=== PATIENT | female | born 1940 | race Caucasian/White ===

== ENCOUNTER 2016-07-13 10:00 | Inpatient (IN) | payer MEDICARE, BC ==
[~2016-07-13] VITALS: Ht 157.5 cm; Wt 45.9 kg
[2016-07-13] VITALS (14 sets, daily range): BP systolic 88–124; BP diastolic 52–84; BMI 21.0
--- NOTE | ~2016-07-13 | HEMODYNAMI ---
PATIENT:DAMI GORE MEDICAL RECORD: [id number] : 44 [facility] [id number] ADMISSION DATE: 07/13/16 Generatedon:07/17/20169:32 Patient name: DAMI GORE Patient #: [id number] SSN: DO B: 1940 Date of study: 07/17/2016 Page: Of Hemodynamic Procedure Report Patient Data Patient Demographics Procedure consent was obtained First Name: DAMI Gender: Female Last Name: SOFÍA : 1940 Middle Initial: J Age: 76 year(s) Patient #: [id number] Race: Additional ID: [id number] Contact details Address: [place] [address] State: [place] City: [place] Zip code: [address] Past Medical History Allergies: No known allergies Admission Admission Data Admission Date: 07/13/2016 Admission Time: 12:55 Admit Source: Other Insurance Payor: Medicare Room #: D.2125 Height (in.): 62 BSA: 1.43 (m2) Height (cm.): 157.48 BMI: 18.55 (kg/m2) Weight (lbs.): 101.41 Weight (kg.): 46 Lab Results Lab Result Date: 07/17/2016 Lab Result Time: 0:00 Biochemistry Name Units Result Min Max BUN mg/dl 11 --(-*--)-- 7 18 Creatinine mg/dl 0.6 --(*---)-- 0.6 1.3 CBC Name Units Result Min Max Hemoglobin g/dl 13.7 --(*---)-- 13.5 17.5 Procedure Procedure Types Cath Procedure Diagnostic Procedure [facility] w/[facility] Procedure Description Procedure Date Procedure Date: 07/17/2016 Procedure Start Time: 9:20 Procedure End Time: 9:31 Procedure Staff Name Function Raf Ruiz MD Performing Physician Manny Hutchinson RT Vacuum Drier Tender Edwin Templeton RN Nurse Johnie Valerio RT Scrub Brennon Crews RT Monitor Ace Nickerson RT Monitor Procedure Data Cath Procedure Fluoroscopy Diagnostic fluoroscopy Total fluoroscopy Time: 1.1 time: 1.1 min min Diagnostic fluoroscopy Total fluoroscopy dose: 145 dose: 145 mGy mGy Contrast Material Contrast Material Type Amount (ml) Isovue 300 49 Entry Location Entry Primary Successful Side Size Upsize Upsize Entry Closure Smith ccessful Closure Location (Fr) 1 (Fr) 2 (Fr) Remarks Device Remarks Radial Right 6 Fr Mechanical artery Short Compression Estimated blood loss: 5 ml Diagnostic catheters Device Type Used For End Catheter Placement Terumo 5Fr [place] 110cm Procedure catheter Procedure Medications Medication Administration Route Dosage Oxygen NC 2 l/min Lidocaine 2% added to field 20 Heparin Flush Bag added to field 2 bags (1000units/500ml NS) Versed I.V. 0.5 mg Fentanyl I.V. 25 mcg Radial Cocktail I.A. 1 syringe (Verapomil 2mg/Nitro 400mcg/Heparin 1500units) Versed I.V. 0.5 mg Fentanyl I.V. 25 mcg Hemodynamics Rest BSA: 1.43 (m2) HGB: 13.7 (g/dl) O2 Consumption: Estimated: 134.16 (ml/min) O2 Co nsumption indexed: Estimated:93.82 (ml/min/m) Heart Rate: 77 (bpm) Snapshots Pre Cath Intra NCS Post Cath Vital Signs Time Heart Resp SPO2 etCO2 KC2rigw NIBP (mmHg) Rhythm Pain Sedation Rate (ipm) (%) (mmHg) (mmHg) Status Level (bpm) 9:11:37 73 15 100 0 0 165/79(116) NSR 0 (11) 10(A) , No pain 9:15:57 73 16 99 0 0 149/78(113) NSR 0 (11) 10(A) , No pain 9:20:19 70 16 98 0 0 143/71(103) NSR 0 (11) 10(A) , No pain 9:24:30 79 17 96 0 0 121/66(80) NSR 0 (11) 9(A) , No pain 9:28:44 69 16 96 0 0 119/59(85) NSR 0 (11) 10(A) , No pain Medications Time Medication Route Dose Verified Delivered Reason Notes E ffectiveness by by 9:16:06 Oxygen NC 2 l/min Raf Pineda used for Sara Templeton RN procedure 9:19:48 Lidocaine 2% added 20ml Raf Carbone for local to vial Sara Ruiz MD anesthetic field 9:19:53 Heparin Flush added 2 bags Raf Carbone used for Bag to Sara Ruiz MD procedure (1000units/500ml field NS) 9:20:27 Versed I.V. 0.5 mg Raf Pineda for sedation Sara Templeton RN 9:20:32 Radial Cocktail I.A. 1 Raf Carbone for (Verapomil syringe Sara Ruiz MD vasodilation 2mg/Nitro 400mcg/Heparin 1500units) 9:20:33 Fentanyl I.V. 25 mcg Raf Pineda for sedation Sara Templeton RN 9:24:02 Versed I.V. 0.5 mg Raf Pineda for sedation Sara Templeton RN 9:24:08 Fentanyl I.V. 25 mcg Raf Pineda for sedation Sara Templeton RN Procedure Log Time Note 8:37:22 ACC Patient presents with Unstable Angina CCS Anginal Class 2--Slight limitation of ordinary activity. 8:37:24 Diagnostic Cath status Urgent 8:37:33 Time tracking: Regular hours 8:37:41 Plan of Care:Hemodynamics will remain stable., Cardiac rhythm will remain stable., Comfort level will be maintained., Respiratory function will remain adequate., Patient/ family verbilizes understanding of procedure., Procedure tolerated without complication., Recovers from procedure without complications.. 8:45:26 Manny Hutchinson RT(R) sent for patient. Start room use. 8:47:47 Lab Result : Creatinine 0.6 mg/dl 8:47:47 Lab Result : BUN 11 mg/dl 8:47:47 Lab Result : Hemoglobin 13.7 g/dl 8:55:59 Patient received from Med II to CCL 2 Alert and oriented. Tansferred to table in Supine position. 8:56:00 Warm blankets applied, and heidi hugger turned on for patient comfort. 8:56:01 Correct patient and procedure confirmed by team. 8:56:03 Signed procedure consent form obtained from patient. 8:56:04 ECG and BP/O2 sat monitors applied to patient. 9:02:43 Admit Source: Other 9:02:52 Insurance Payor : Medicare 9:03:14 Patient Height : 62 inches 9:03:20 Patient Weight : 101.41 lbs 9:10:20 Vital chart was started 9:10:21 Baseline sample Acquired. 9:10:26 Rhythm: sinus rhythm 9:10:29 Full Disclosure recording started 9:10:55 H&P Date Dictated: 07/13/2016 Within 30 days and on chart., ER History on chart.. 9:10:57 Pre-procedure instructions explained to patient. 9:10:58 Pre-op teaching completed and patient verbalized understanding. 9:11:00 Family in patients room. 9:11:04 Patient NPO since Midnight. 9:11:13 Patient allergic to No known allergies 9:11:18 Is the patient allergic to Iodine/contrast media? No. 9:11:21 Is patient on blood thinner?No 9:11:28 Patient diabetic? No. 9:11:43 Patient not . Patient is over age 57. 9:11:47 ----Pre-sedation anethsthesia assessment.---- 9:11:51 Previous problem with sedation/anesthesia? No ? 9:12:13 Snore? No 9:12:15 Sleep apnea? No 9:12:17 Deviated septum? No 9:12:18 Opens mouth fully? Yes 9:12:19 Sticks out tongue? Yes 9:12:26 Airway obstruction? No ? 9:12:50 Dentures? No ? 9:13:14 Pre procedure: right dorsailis pedis pulse 2+ Normal; easily identifiable; not easily obliterated 9:13:18 Modified Sterling's test Ulnar < 7 seconds 9:13:29 Patient pain scale 0/10 resting. 9:13:53 IV patent on arrival in left wrist with 0.9% NaCl at KVO. 9:13:59 Lab results completed and on chart. 9:14:04 Right Radial & Right Groin area was prepped with chlora-prep and draped in sterile fashion 9:14:06 Alarms reviewed by R. N. 9:14:07 Sharps counted by scrub and verified by R.N. 9:14:52 Use device set Radial Dx 9:14:53 Tegaderm 4 x 4 opened to sterile field. 9:14:54 Acist Manifold opened to sterile field. 9:14:55 Acist Hand Control opened to sterile field. 9:14:56 Acist Syringe opened to sterile field. 9:14:56 Cardinal Cath Pack opened to sterile field. 9:14:57 Bag Decanter opened to sterile field. 9:14:57 Terumo 6Fr Slender Glidesheath opened to sterile field. 9:14:58 St Rui 260cm J .035 wire opened to sterile field. 9:16:06 Oxygen 2 l/min NC was given by Edwin Templeton RN; used for procedure; 9:19:43 --------ALL STOP TIME OUT------ 9:19:44 Final Timeout: patient, procedure, and site verified with staff and physician. All members of the team are in agreement. 9:19:46 Right Radial & Right Groin site verified by team. 9:19:48 Lidocaine 2% 20ml vial added to field was given by Raf Ruiz MD; for local anesthetic; 9:19:48 Physical assessment completed. ASA score P 2 - A patient with mild systemic disease as per Raf Ruiz MD. 9:19:51 Sedation plan: IV Moderate Sedation Versed, Fentanyl 9:19:53 Heparin Flush Bag (1000units/500ml NS) 2 bags added to field was given by Raf Ruiz MD; used for procedure; 9::56 Zero performed for pressure channel P1 9:20:01 Zero performed for pressure channel P1 9:20:15 Procedure started. 9:20:19 Local anesthetic to right radial artery with Lidocaine 2% by Raf Ruiz MD.INITIAL ACCESS ONLY 9:20:27 Versed 0.5 mg I.V. was given by Edwin Templeton RN; for sedation; 9:20:27 A 6 Fr Short sheath was inserted into the Right Radial artery 9:20:32 Radial Cocktail (Verapomil 2mg/Nitro 400mcg/Heparin 1500units) 1 syringe I.A. was given by Raf Ruiz MD; for vasodilation; 9:20:33 Fentanyl 25 mcg I.V. was given by Edwin Templeton RN; for sedation; 9:20:52 A Terumo 5Fr [place] 110cm catheter was advanced over the wire and used for Procedure. 9:21:17 LV gram done using BASS 9:21:21 Injector settings: Ml/sec: 5, Volume: 15, 9:21:38 EF : 55 % 9::45 LCA angiography performed. 9::29 RCA angiography performed. 9::41 Catheter removed. 9::53 Terumo TR Band Standard opened to sterile field. 9:24:02 Versed 0.5 mg I.V. was given by Edwin Templeton RN; for sedation; 9:24:07 Sheath removed intact; hemostasis achieved with Mechanical Compression to the Right Radial artery. 9:24:08 Fentanyl 25 mcg I.V. was given by Edwin Templeton RN; for sedation; 9:24:11 Procedure ended.(Physican Out) 9:24:30 Fluoroscopy time 01.10 minutes. 9::46 Fluoroscopy dose: 145 mGy 9:: Flurop Dose total: 145 9:25: Contrast amount:Isovue 300 49ml. 9:25:02 Sharps counted by scrub and verified by R.N. 9:25:08 TR band inflated with 9cc of air. 9:25:09 Insertion/operative site no bleeding no hematoma. 9:25:35 Post right radial artery:stable, soft, clean and dry 9:25:36 Post Procedure Pulses reassessed and unchanged 9:25:39 Post-procedure physical assessment completed. ASA score P 2 - A patient with mild systemic disease as per Raf Ruiz MD. 9:25:42 Post procedure rhythm: unchanged. 9:25:48 Estimated blood loss: 5 ml 9:25:50 Post procedure instruction explained to patient.Patient verbalizes understanding. 9:25:50 Patient needs reinforcement of post procedure teaching. 9:27:40 Procedure and supply charges have been captured, reviewed, submitted and are correct. 9:30:25 Vital chart was stopped 9:30:30 See physician's report for complete and final results. 9:30:41 Report given to PCU. 9:30:52 Patient transfered to PCU with Bed. 9:31:01 Procedure ended. 9:31:01 Full Disclosure recording stopped 9:31:05 End room use (Document Last) Device Usage Item Name Manufacture Quantity Catalog Hospital Part Current Minimal Lot# / Number Charge Number Stock Stock Serial# Code Tegaderm 4 3M 1 [id number] 192467 [id number] 5 x 4 Acist Acist 1 39244 752062 422880 679959 5 Manifold [employer] Inc Acist Hand Acist 1 53763 576057 663610 387315 5 Control [employer] Inc Acist Acist 1 08878 324956 551286 950939 20 Syringe Medical Systems Inc Cardinal Cardinal 1 [id number] 578971 79618 022644 5 Cath Pack Health Bag Microtek 1 2002S 289550 66583 383775 5 Decanter [employer] Inc. Terumo 6Fr Terumo 1 [id number] 994593 000050 140766 [address] R[address] St Rui 1 564079 834545 705845 489507 30 260cm J .035 wire Terumo 5Fr Terumo 1 400581 954108 658224 956416 5 [place] 110cm catheter Terumo TR Terumo 1 [id number] 813833 697512 216440 40 Band Standard Signature Audit [place] Stage Time Signature Unsigned Intra-Procedure 07/17/2016 Ace Nickerson 9:32:33 AM RT(R) (CV) Signatures Monitor : Brennon Crews RT Signature : Date : Time : Monitor : Ace Nickerson RT Signature : Date : Time : [place] [id number] [place] [address]
[2016-07-13 10:43] LABS: BASOPHILS 0.2 % (0.0-2.0); EOSINOPHILS 0.1 % (0-7); HEMATOCRIT 37.8 % (36.0-48.0); HEMOGLOBIN 12.7 g/dL (12-16); IMMATURE GRANULOCYTES 0.3 % (0-5); LYMPHOCYTES 8.5 % (15-50); MCH 28.4 pg (26.0-34.0); MCHC 33.6 g/dL (31.0-37.0); MCV 84.6 fL (80.0-100.0); MEAN PLATELET VOLUME 11.4 fL (7.4-10.4); MONOCYTES 7.7 % (2-11); NEUTROPHILS 83.2 % (40-80); PLATELET COUNT 193 10x3/uL (130-400); RBC 4.47 10x6/uL (4.00-5.40); RDW 13.7 % (11.5-14.5); WBC 11.6 10x3/uL (4.8-10.8)
[2016-07-13 10:53] LABS: APTT 25.6 SECONDS (22.8-39.4); INR 1.08 (0.85-1.17); PROTIME 13.9 SECONDS (11.6-15.0)
[2016-07-13 11:04] LABS: ALBUMIN 3.9 g/dL (3.4-5.0); ALKALINE PHOSPHATASE 111 U/L (46-116); ALT (SGPT) 173 U/L (10-68); CALC OSMOLALITY 255 mosm/kg (275-300); CALCIUM 7.8 mg/dL (8.5-10.1); CARBON DIOXIDE 24.1 mmol/L (21.0-32.0); CHLORIDE - SERUM 90 mmol/L (98-107); CREATININE - SERUM 0.9 mg/dL (0.6-1.3); GLUCOSE 142 mg/dL (74-106); POTASSIUM - SERUM 4.6 mmol/L (3.5-5.1); PROTEIN - SERUM 6.2 g/dL (6.4-8.2); SODIUM 126 mmol/L (136-145); UREA NITROGEN 16 mg/dL (7-18); eGFR NON AFRICAN AMERICAN 65 mL/min (90-120)
[2016-07-13 11:20] LABS: AMYLASE - SERUM 62 U/L (25-115); CREATINE KINASE 248 UL (21-215); LIPASE 214 U/L (73-393); MAGNESIUM - SERUM 1.8 mg/dL (1.8-2.4); PRO BNP 6004 pg/mL (0-125); TROPONIN-I 0.017 ng/mL (0.000-0.060)
[2016-07-13 11:36] LABS: CKMB 5.8 U/L (0.0-3.6)
[2016-07-13 11:42] LABS: T4 THYROXIN - FREE 1.8 ng/dL (0.76-1.46); THYROID STIMULATING HORMONE 3.41 uIU/mL (0.36-3.74)
[2016-07-13 11:58] LABS: APPEARANCE CLEAR (CLEAR); BILIRUBIN NEGATIVE (NEGATIVE); COLOR STRAW (YELLOW); GLUCOSE NEGATIVE (NEGATIVE); KETONE SMALL mg/dL (NEGATIVE); LEUKOCYTE ESTERASE NEGATIVE (NEGATIVE); NITRITE NEGATIVE (NEGATIVE); PROTEIN TRACE mg/dL (NEGATIVE); SPECIFIC GRAVITY 1.015 (1.005-1.020); UROBILINOGEN NORMAL (NORMAL)
[2016-07-13 12:00] LABS: BACTERIA FEW /hpf (NONE SEEN); EPITHELIAL CELLS RARE /hpf (0-5); RED CELLS - URINE OCC /hpf (0-5); WHITE CELLS - URINE RARE /hpf (0-5)
--- NOTE | 2016-07-13 14:00 | NUR ---
RECIEVED PT FROM ER. CONNECTED TO ICU MONITORS. PT AAOX4. C/O SOME SHORTNESS OF BREATH. RECIEVING O2 VIA NC AT 2L. O2 SAT 98%. UNCONTROLLED A-FIB NOTED AT A RATE OF 112. BP STABLE. PT RECIEVING CARDIZEM AT 10MG/HR TO LEFT WRIST. NO SIGNS OF ACUTE DISTRESS AT THIS TIME. FAMILY AT BEDSIDE. ASSESSMENT COMPLETE PER FLOWSHEET. WILL MONITOR FOR CHANGES THROUGHOUT SHIFT.
--- NOTE | 2016-07-13 15:00 | NUR ---
PLACED F/C PER ORDERS. 350 CC OF CLEAR, YELLOW URINE NOTED TO COLLECTION CHAMBER. WILL MONITOR OUTPUT.
[2016-07-13 15:38] LABS: CKMB 4.6 U/L (0.0-3.6); CREATINE KINASE 170 UL (21-215); TROPONIN-I 0.022 ng/mL (0.000-0.060)
--- NOTE | 2016-07-13 16:15 | NUR ---
20G IV TO LEFT FA PLACED. X1 STICK. TOLERATED WELL.
[2016-07-13 16:28] LABS: APPEARANCE CLEAR (CLEAR); BILIRUBIN NEGATIVE (NEGATIVE); COLOR STRAW (YELLOW); GLUCOSE NEGATIVE (NEGATIVE); KETONE NEGATIVE (NEGATIVE); LEUKOCYTE ESTERASE NEGATIVE (NEGATIVE); NITRITE NEGATIVE (NEGATIVE); PROTEIN NEGATIVE (NEGATIVE); UROBILINOGEN NORMAL (NORMAL)
--- NOTE | 2016-07-13 18:00 | NUR ---
FAMILY AT BEDSIDE. NO CHANGES NOTED AT THIS TIME. FRESH ICE WATER PLACED ON BEDSIDE TABLE ALONG WITH A CUP OF JELLO. WILL CONTINUE TO ASSESS.
--- NOTE | 2016-07-13 19:00 | NUR ---
Assessment complete. See flowsheet. Pt awake upon entrance into room with son and daughter at bedside. Pt alert, oriented x4 and following all commands and conversation with no neuro deficits noted. Pt moving all extremities with 4/5 strength to all extremities and no edema noted. Respirations even and unlabored. Pt receiving O2 @ 2L NC. Lung sounds CTA with diminished lower lobes. HR CAF with S1S2 auscultated. All peripheral pulses +2 with capillary refill <3 seconds. Pt left wrist 22g PIV site CDI no s/s infecction or infiltration with D51/2NS infusing @ 75cc/hr. Left 20g A/C PIV site CDI no s/s infection or infiltration with Cardizem gtt infusing @ 10mg/hr. BS + to all quadrants. Pt denies nausea at this time. Michele catheter secure retrieving clear/yellow urine. Temp 98.4F orally. Pt self-positioning in bed for comfort with HOB decreased to 15 degrees from 30 degrees per pt request. Pt denies pain at this time and remains calm/cooperative for assessment. Call light and bedside table within pt reach. Pt denies further needs at this time. CPOC.
--- NOTE | 2016-07-13 21:00 | NUR ---
PM medications administered. See MAR. Pt watching television with VSS. NO s/s pain and mild anxiety noted. Pt calms easily. Call light and bedside table within pt reach. No further request at this time. CPOC.
--- NOTE | 2016-07-13 22:21 | NUR ---
Cardizem gtt turned off for hypotension and HR < 60bpm. Cool washcloth to pt forehead and fan turned on per pt request. Daughter remains at bedside. CPOC.
--- NOTE | 2016-07-13 22:30 | NUR ---
HR CONVERTED TO SR RATE 70BPM
[2016-07-13 22:51] LABS: CKMB 3.9 U/L (0.0-3.6); CREATINE KINASE 174 UL (21-215)
--- NOTE | 2016-07-13 23:00 | NUR ---
Reassessment complete. See flowsheet. Pt resting with daughter at bedside and awakens easily to verbal stimulation with no neuro changes to note from previous assessment. O2 @ 2L NC. Lung sounds remain CTA with diminished lower lobes. HR remains SR with S1S2 auscultated. All peripheral pulses +1 with capillary refill <3 seconds. PIV sites remain CDI with cardizem gtt remaining off and D51/2NS infusing @ 75cc/hr to left A/C site; no s/s infection or infiltration. BS remain present to all quadrants. Michele secure and continues to retrieve clear urine. Pt self-positioned to left side for comfort. Call light and bedside table remain within pt reach. NO other changes to note. No further request at this time. CPOC.
[2016-07-14] VITALS (14 sets, daily range): BP systolic 86–132; BP diastolic 51–68; Ht 157.5 cm; Wt 45.9 kg
--- NOTE | 2016-07-14 01:00 | NUR ---
Pt resting quietly with VSS. HR remains SR with SBP 100s. Daughter remains at pt bedside. NO s/s pain or distress and allowed to continue resting undisturbed. Call light and bedside table remain within pt reach. CPOC.
--- NOTE | 2016-07-14 03:00 | NUR ---
Reassessment complete. See flowsheet. Pt continues to rest quietly with VSS and awakens easily to verbal stimulation. NO neuro changes to note from previous assessment. O2 @ 2L NC. Lung sounds clear to all conklin with diminished lower lobes. HR remains SR with S1S2 auscultated. All peripheral pulses +1 with capillary refill <3 seconds. PIV sites remain CDI; unchanged with NO IVF changes to note. Cardizem gtt remains off. BS +. Michele remains secure retrieving clear urine. Pt repositioned to back for AM CXR. HOB @ 30 degrees. Pt denies further needs at this time. Call light and bedside table remain within pt reach. CPOC.
--- NOTE | 2016-07-14 05:00 | NUR ---
Pt resting quietly with daughter at bedside. No s/s pain or distress and allowed to continue resting undisturbed. VSS. HR SR. Call light and bedside table remain within pt reach. CPOC.
[2016-07-14 06:29] LABS: BASOPHILS 0.3 % (0.0-2.0); EOSINOPHILS 0.7 % (0-7); HEMATOCRIT 32.7 % (36.0-48.0); IMMATURE GRANULOCYTES 0.1 % (0-5); LYMPHOCYTES 18.1 % (15-50); MCH 28.1 pg (26.0-34.0); MCHC 33.6 g/dL (31.0-37.0); MCV 83.4 fL (80.0-100.0); MEAN PLATELET VOLUME 11.2 fL (7.4-10.4); MONOCYTES 12.4 % (2-11); NEUTROPHILS 68.4 % (40-80); PLATELET COUNT 179 10x3/uL (130-400); RBC 3.92 10x6/uL (4.00-5.40); RDW 13.8 % (11.5-14.5)
[2016-07-14 06:30] LABS: WBC 7.3 10x3/uL (4.8-10.8)
[2016-07-14 07:05] LABS: ALBUMIN 3.2 g/dL (3.4-5.0); ALKALINE PHOSPHATASE 95 U/L (46-116); ALT (SGPT) 131 U/L (10-68); BILIRUBIN - TOTAL 0.45 mg/dL (0.2-1.3); CALC OSMOLALITY 258 mosm/kg (275-300); CALCIUM 7.4 mg/dL (8.5-10.1); CARBON DIOXIDE 29.7 mmol/L (21.0-32.0); CHLORIDE - SERUM 91 mmol/L (98-107); CKMB 4.1 U/L (0.0-3.6); CREATINE KINASE 153 UL (21-215); CREATININE - SERUM 0.9 mg/dL (0.6-1.3); GLUCOSE 99 mg/dL (74-106); PROTEIN - SERUM 5.9 g/dL (6.4-8.2); SODIUM 129 mmol/L (136-145); UREA NITROGEN 13 mg/dL (7-18); eGFR NON AFRICAN AMERICAN 65 mL/min (90-120)
[2016-07-14 07:07] LABS: POTASSIUM - SERUM 2.6 mmol/L (3.5-5.1)
[2016-07-14 07:08] LABS: TROPONIN-I 0.153 ng/mL (0.000-0.060)
--- NOTE | 2016-07-14 09:46 | NUR ---
AWAKE AND ALERT SKIN WARM AND DRY. CARDIZEM GTT OFF. MONITOR SR WITHOUT ECTOPICE NOTED. IV'S X2 LEFT ARM WRIST AND AC NO REDNESS OR SWELLING NOTED. D51/2 NS AT KVO INFUSING PER PUMP. COMBS CATH PATENT AND DRAINING CLEAR PALE YELLOW URINE FAMILY AT BEDSIDE SMALL SMEAR BM GREENISH BROWN. DENIES PAIN. PO FLUIDS TAKEN WITHOUT NAUSEA. PUDDING GIVEN AND TAKEN WITHOUT NAUSEA BEFORE PO POTASSIUM GIVEN WITH ORANGE JUICE TOLERATED WELL.
--- NOTE | 2016-07-14 11:40 | NUR ---
COMBS CATH DC'D. TOLERATED WELL UP TO bsc VOID 50CC CLEAR YELLOW URINE. 2 ND DOSE OF ORAL POTASSIUM. UNSTEADY ON FEET. PT HERE AND AMBULATED IN UNIT. MONITOR sr WITHOUT ECTOPICS. ON ROOM AIR NO SHORTNESS OF BREATH MURMUR NOTED ON EXAM. REPORT CALLED TO JUAN M ON pcU TO TRANSFER PER WHEEL CHAIR REGULAR DIET ORDERED AND SERVED
--- NOTE | 2016-07-14 13:36 | NUR ---
CHEST XRAYS WERE SOMEHOW CANCELED DURING THE TRANSFER OF THE PT. PT IS SUPPOSED TO HAVE STANDING CHEST XRAYS. PUT ORDER BACK IN. CALLED XRAY AND TALKED TO DAVID TO VERIFY THAT THEY KNEW ABOUT THIS FOR TOMORROW AM AND DAILY CHEST XRAY TO BE STANDING.
--- NOTE | 2016-07-14 15:37 | NUR ---
PT URINATED. FIRST TIME SINCE POST COMBS CATH REMOVAL. SITTING UP IN BED WITH AT BEDSIDE RESTING NOW DENIES NEEDS AT THIS TIME WILL CONT TO MONITOR.
--- NOTE | 2016-07-14 18:16 | NUR ---
PT SITTING UP IN BED WITH FAMILY AT BEDSIDE. K 2.8 STARTED ELEC ANA AGAIN. PT DENIES NEEDS AT THIS TIME WILL CONT TO MONITOR.
--- NOTE | 2016-07-14 20:38 | NUR ---
POTASSIUM 20 MEQ GIVEN PO MIXED WITH ORANGE JUICE FOR ELECTRIC PROTOCOL.
--- NOTE | 2016-07-14 21:43 | NUR ---
HS MEDS GIVEN WITH FRESH ICE WATER. ATIVAN 0.5 MG GIVEN IV AT PT REQUEST FOR ASSIST WITH SLEEP. 1/2 DOSE OF BETAPACE GIVEN AT REQUEST OF PTS SON AND DAUGHTER DUE TO PT BEING SENSITIVE TO MEDICATIONS.
[2016-07-15 00:30] VITALS: BP 121/72
--- NOTE | 2016-07-15 01:40 | NUR ---
NOTIFIED BY ASSISTANT CITY ATTORNEY THAT PT HAD A RUN OF 13 PVCS IN A ROW, PT ASSESSED, PT ASYPMTOMATIC, VITALS STABLE, WILL CONT TO MONITOR. FAMILY AT BED SIDE.
--- NOTE | 2016-07-15 03:44 | NUR ---
RESTING WITH EYES CLOSED, RESPERATIONS EVEN, NO S/S DISTRESS NOTED.
[2016-07-15 04:30] VITALS: BP 140/80
[2016-07-15 05:08] LABS: BASOPHILS 0.5 % (0.0-2.0); EOSINOPHILS 3.3 % (0-7); HEMATOCRIT 36.6 % (36.0-48.0); HEMOGLOBIN 12.1 g/dL (12-16); IMMATURE GRANULOCYTES 0.3 % (0-5); LYMPHOCYTES 27.1 % (15-50); MCH 28.1 pg (26.0-34.0); MCHC 33.1 g/dL (31.0-37.0); MCV 84.9 fL (80.0-100.0); MONOCYTES 17.9 % (2-11); NEUTROPHILS 50.9 % (40-80); RBC 4.31 10x6/uL (4.00-5.40); RDW 13.9 % (11.5-14.5); WBC 6.1 10x3/uL (4.8-10.8)
[2016-07-15 05:18] LABS: PLATELET COUNT 216 10x3/uL (130-400)
[2016-07-15 05:55] LABS: ALBUMIN 3.1 g/dL (3.4-5.0); ANION GAP 9.7 mmol/L (8-16); BILIRUBIN - TOTAL 0.45 mg/dL (0.2-1.3); CALCIUM 7.1 mg/dL (8.5-10.1); CARBON DIOXIDE 31.2 mmol/L (21.0-32.0); CREATININE - SERUM 0.8 mg/dL (0.6-1.3); MAGNESIUM - SERUM 1.8 mg/dL (1.8-2.4); PHOSPHOROUS 3.1 mg/dL (2.5-4.9)
[2016-07-15 05:56] LABS: POTASSIUM - SERUM 2.9 mmol/L (3.5-5.1)
--- NOTE | 2016-07-15 07:00 | NUR ---
RECEIVED REPORT. ASSUMED CARE OF PATIENT. CALL LIGHT WITHIN REACH. SITTING UP IN BED. RESP EVEN AND UNLABORED. NO DISTRESS. FAMILY AT BEDSIDE. DENIES NEEDS AT THIS TIME.
--- NOTE | 2016-07-15 09:00 | NUR ---
AT BEDSIDE, NEW ORDERS TO CHANGE IV FLUIDS TO D5 WITH 40MEQ OF K+ AT 30ML/HR. ORDERS INPUTTED.
[2016-07-15 09:10] VITALS: BP 122/74
[2016-07-15 12:00] VITALS: BP 126/78
--- NOTE | 2016-07-15 12:00 | NUR ---
SITTING IN BED, DENIES NEEDS. CALL LIGHT WITHIN REACH. NO DISTRESS. FAMILY AT BEDSIDE.
--- NOTE | 2016-07-15 15:30 | NUR ---
MANUAL BP CHECKED, 128/78 DUE TO AUTOMATIC BP GAVE READING OF 168/98 AND PATIENT BP HAS BEEN WNL ALL SHIFT. NO DISTRESS.
[2016-07-15 16:00] VITALS: BP 159/93
--- NOTE | 2016-07-15 17:44 | NUR ---
NOTIFIED OF PATIENT ELEVATED TO 149-167 UNCONTROLLED AFIB. STATED TO NOTIFY , NOTIFIED AND GAVE ORDERS FOR BETAPACE 80MG PO X 1 NOW AND GIVE SCHEDULED 40MG TONIGHT SO PATIENT WOULD END UP RECEIVING 120MG TOTAL THIS EVENING AND CONTINUE ON 40MG PO BID. NOTIFIED OF NEW ORDERS THAT GAVE. BETAPACE 80MG PO X 1 ADMINISTERED AT THIS TIME.
--- NOTE | 2016-07-15 18:57 | NUR ---
PATIENT RESTING IN BED AT THIS TIME. FAMILY AT BEDSIDE. CALL LIGHT WITHIN REACH. DENIES NEEDS. NO DISTRESS.
--- NOTE | 2016-07-15 19:03 | NUR ---
SITTING UP IN BED, AAOX3, SKIN WARM AND DRY, RESP UNLABORED, IV PATENT TO LEFT AC AND LEFT FOREARM, SEVERAL FAMILY MEMBERS AT BEDSIDE, NO DISTRESS NOTED
[2016-07-15 20:19] VITALS: BP 112/68
[2016-07-16 00:06] VITALS: BP 109/62
--- NOTE | 2016-07-16 05:53 | NUR ---
TAKEN TO XRAY VIA WHEELCHAIR, ACCOMPANIED BY FAMILY MEMBER
[2016-07-16 06:01] LABS: BASOPHILS 0.5 % (0.0-2.0); EOSINOPHILS 3.8 % (0-7); HEMOGLOBIN 13.9 g/dL (12-16); IMMATURE GRANULOCYTES 0.3 % (0-5); LYMPHOCYTES 21.5 % (15-50); MCH 28.6 pg (26.0-34.0); MCHC 33.9 g/dL (31.0-37.0); MCV 84.4 fL (80.0-100.0); MEAN PLATELET VOLUME 10.3 fL (7.4-10.4); MONOCYTES 16.9 % (2-11); PLATELET COUNT 254 10x3/uL (130-400); RBC 4.86 10x6/uL (4.00-5.40); RDW 13.6 % (11.5-14.5); WBC 6.3 10x3/uL (4.8-10.8)
[2016-07-16 06:25] LABS: ALBUMIN 3.4 g/dL (3.4-5.0); ALKALINE PHOSPHATASE 93 U/L (46-116); ALT (SGPT) 101 U/L (10-68); BILIRUBIN - TOTAL 0.43 mg/dL (0.2-1.3); CALCIUM 7.8 mg/dL (8.5-10.1); CARBON DIOXIDE 30.5 mmol/L (21.0-32.0); CHLORIDE - SERUM 95 mmol/L (98-107); CREATININE - SERUM 0.6 mg/dL (0.6-1.3); GLUCOSE 103 mg/dL (74-106); PROTEIN - SERUM 6.6 g/dL (6.4-8.2); SODIUM 133 mmol/L (136-145); eGFR NON AFRICAN AMERICAN > 90 mL/min (90-120)
[2016-07-16 06:26] LABS: CALC OSMOLALITY 263 mosm/kg (275-300); POTASSIUM - SERUM 3.2 mmol/L (3.5-5.1); UREA NITROGEN 6 mg/dL (7-18)
--- NOTE | 2016-07-16 07:30 | NUR ---
RESTING QUIETLY SITTING IN BED HOB ELEVATED 50 DEGREES RESP UNLABORED DENIES ANY NEEDS OR DISCOMFORT AT THIS TIME NAD NOTED
[2016-07-16 08:25] VITALS: BP 123/74
[2016-07-16 12:53] VITALS: BP 102/55
--- NOTE | 2016-07-16 14:16 | CN ---
PATIENT NAME:DAMI GORE MEDICAL RECORD: [id number] : 44 LOCATION:D. D.2125 ADMIT DATE: 07/13/16 ACCOUNT: [id number] CONSULTING PHYSICIAN: TAYLOR WALDEN MD REFERRING PHYSICIAN: HERRERA GLASER MD DATE OF CONSULTATION: 07/13/2016 DIAGNOSES: 1. Atrial fibrillation with rapid ventricular response. 2. Shortness of breath, dyspnea on exertion. 3. Pulmonary edema. 4. Nausea, vomiting. HISTORY OF PRESENT ILLNESS: Mrs. Gore has had GI illness for the past week. She has become more short of breath. She tells all part of the illness. She has had palpitations as well. She presented to the Emergency Room. She is in pulmonary edema as well. She is with atrial fibrillation with rapid ventricular response. She went to Dr. Gonzalez's clinic last night secondary to the continued GI symptomatology, was given IV fluids. Her heart rate, when she left there was in the 90s. She is now at 160 to 170 beats per minute, not having any chest pain. She has a history of having palpitations in the past, but nothing prolonged like this week. Her EKG is with nonspecific ST-T abnormalities. PHYSICAL EXAMINATION: GENERAL APPEARANCE: Well-nourished, well-developed, appears stated age. Level of distress, comfortable. PSYCHIATRIC: Mental status, alert, normal affect. Orientation, oriented to time, place and person. EYES: Lids and conjunctiva, noninjected. No discharge, no pallor. ENT: Lips, teeth, gums, normal dentition. Oropharynx, no cyanosis, no pallor. NECK: Carotid arteries, bilateral normal upstroke, no bruits, no thrills. JUGULAR VEINS: No jugular venous pressure or distention. CERVICAL LYMPH NODES: Nontender, nonenlarged. THYROID: Not enlarged. Nontender. No nodules. LUNGS: Respiratory effort, unlabored. CHEST: Normal curvature. No thoracic deformity. No chest wall tenderness. Percussion, resonant. Auscultation, clear. No wheezes, no rales, no rhonchi. HEART: Irregularly irregular atrial fibrillation. EXTREMITIES: No cyanosis, no edema. Peripheral pulses, full and equal in all extremities, except as noted. No bruits appreciated. ABDOMEN: Soft, nondistended. Normal aorta. No bruit. Nontender. No masses. Liver, nontender, no hepatomegaly. Spleen, nontender, no splenomegaly. MUSCULOSKELETAL: No joint tenderness. No joint swelling. No erythema. NEUROLOGICAL: Normal gait, normal strength, normal tone. SKIN: Warm and dry. OVERALL IMPRESSION: Atrial fibrillation with rapid ventricular response, most likely secondary to electrolyte imbalance from the protracted GI illness. We will get an echocardiogram today. We will put her on Cardizem IV, slow her down and if she converts, would continue p.o. Cardizem if her blood pressure tolerates it. If she does not convert, we will use the Cardizem for rate control, anticoagulate, and plan for cardioversion in the future. TRANSINT:[id number] Voice Confirmation ID: [id number] DOCUMENT ID: [id number] CONSULT REPORT [id number] DAMI GORE, TAYLOR LOPEZ at 1416 CC: [id number] DICTATION DATE: 07/13/16 1046 E MAIL SYSTEM ADMINISTRATOR: 07/13/162001 ADM IN [facility] [address] [place] [address]
--- NOTE | 2016-07-16 14:16 | EC ---
PATIENT:DAMI GORE DATE OF SERVICE: 07/13/16 SEX: F MEDICAL RECORD: [id number] DATE OF : 44 LOCATION:D. D.212 AGE OF PATIENT: 76 ADMISSION DATE: 07/13/16 REFERRING PHYSICIAN: INTERPRETING PHYSICIAN: TAYLOR RUIZ MD ECHOCARDIOGRAM REPORT ECHO CHARGES 4 ECHO COMPLETE CLINICAL DIAGNOSIS: A-FIB WITH RVR/CHF ECHOCARDIOGRAPHIC MEASUREMENTS (adult normal given) AC root (d.<3.7cm) 2.6 LV Septum d (<1.2 cm> 0.9 Valve Excursion 1.8 LV Septum (systole) 1.6 Left Atria (s.<4.0cm> 4.5 LVPW d(<1.2cm) 1.0 RV (d.<2.3cm) 2.3 LVPW (sytole) 1.8 LV diastole(<5.6CM) 4.8 MV E-F(>70mm/sec) LV systole 2.3 LVOT Diameter 1.9 MV exc.(>10mm) Est.ejection fraction (50-75%) Pericardial Effusion N DOPPLER: LVIT A E 176.0 LA RVSP 49.0 LVOT 85.0 AOP1/2T Asc. Ao 131 RVOT 70.0 RA PA 62.0 AV Gradient Peak 7.0 AV Mean 2.7 AV Area 2.3 MV Gradient Peak 19.0 MV Mean 6.0 MV Area COMMENTS: Patient Assessment Coordinator: Laura GRACEOE Environmental Health Nurse:1 Dr. Ruiz TAPE# PACS DATE OF SERVICE: 07/13/2016 Echocardiogram FINDINGS: 1. Left ventricular chamber size is within normal limits. Left ventricular systolic function is normal. Overall ejection fraction estimated at 60%. 2. Left atrium is enlarged at 4.5 cm. Right atrium and right ventricular chamber sizes are as well mildly dilated. 3. Valvular structures. Mitral valve demonstrates a definite prolapse of the ECHOCARDIOGRAM REPORT [id number] DAMI GORE posterior leaflet. This leads to severe mitral regurgitation as well. There is moderate to severe tricuspid regurgitation. The remaining valvular structures have normal structure and motion. 4. No evidence of left ventricular thrombus or pericardial effusion. Pulmonary systolic pressure is elevated estimated at 50 mmHg. TRANSINT:[id number] Voice Confirmation ID: [id number] DOCUMENT ID: [id number] TAYLOR RUIZ MD at 1416 CC: MAGDA GORE M.D. [id number] DICTATION DATE: 07/13/16 1848 CERTIFIED ORTHOTIST: 07/14/16 0926 ADM IN [facility] [address] [id number]
--- NOTE | 2016-07-16 14:31 | NUR ---
RUN OF 10 VTACH NOTED. B/P 133/80. DR. WALDEN NOTIFIED. NO NEW ORDERS GIVEN. PT ASYMPTOMATIC. WILL CONT. TO MONITOR. BALDOMERO TALBOT ALSO NOTIFIED.
--- NOTE | 2016-07-16 14:44 | NUR ---
SPOKE WITH EDDIE AT DR KIMBALL'S OFFICE REPORTED PT HAD RUN OF 10 BEATS OF V TACH B/P 133/80 ASYMPTOMATIC NO NEW ORDRS
[2016-07-16 14:58] LABS: BASOPHILS 0.2 % (0.0-2.0); EOSINOPHILS 1.7 % (0-7); HEMATOCRIT 40.6 % (36.0-48.0); HEMOGLOBIN 13.6 g/dL (12-16); IMMATURE GRANULOCYTES 0.4 % (0-5); LYMPHOCYTES 20.3 % (15-50); MCH 28.4 pg (26.0-34.0); MCHC 33.5 g/dL (31.0-37.0); MCV 84.8 fL (80.0-100.0); MEAN PLATELET VOLUME 10.5 fL (7.4-10.4); MONOCYTES 15.9 % (2-11); NEUTROPHILS 61.5 % (40-80); PLATELET COUNT 264 10x3/uL (130-400); RBC 4.79 10x6/uL (4.00-5.40); RDW 13.7 % (11.5-14.5)
[2016-07-16 15:00] LABS: WBC 8.4 10x3/uL (4.8-10.8)
[2016-07-16 15:12] LABS: CALC OSMOLALITY 262 mosm/kg (275-300); CALCIUM 8.1 mg/dL (8.5-10.1); CARBON DIOXIDE 32.8 mmol/L (21.0-32.0); CHLORIDE - SERUM 94 mmol/L (98-107); CREATININE - SERUM 0.7 mg/dL (0.6-1.3); GLUCOSE 103 mg/dL (74-106); POTASSIUM - SERUM 3.5 mmol/L (3.5-5.1); SODIUM 132 mmol/L (136-145); eGFR NON AFRICAN AMERICAN 87 mL/min (90-120)
[2016-07-16 15:13] LABS: UREA NITROGEN 8 mg/dL (7-18)
--- NOTE | 2016-07-16 16:21 | NUR ---
Patient Name: DAMI GORE Admission Status: ER Accout number: [id number] Admission Date: 07-13-2016 : 1940 Admission Diagnosis: Attending: MUSTAPHA Current LOS: 3 Anticipated DC Date: Planned Disposition: Acute Care Hospital Primary Insurance: MEDICARE A & B PLANNED EXTERNAL PROVIDER TO BE DETERMINED Discharge Planning Comments: * Is the patient Alert and Oriented? Yes 0 * How many steps to enter\exit or inside your home? NONE 0 * PCP DR. GORE 0 * Pharmacy [facility] IN [place] 0 * Preadmission Environment Home with Family 0 * ADLs Independent 0 * Equipment None 0 * Other Equipment NO MEDICAL EQUIPMENT PROVIDER PREFERENCE 0 * List name and contact numbers for known caregivers / representatives who currently or will assist patient after discharge: MAGDA GORE, SON, MANUELA SUGGS, DAUGHTER, 0 * Community resources currently utilized None 0 * Please name any agencies selected above. NONE 0 * Additional services required to return to the preadmission environment? No 0 * Can the patient safely return to the preadmission environment? Yes 0 * Has this patient been hospitalized within the prior 30 days at any hospital? No 0 CM MET WITH PT AND SPOUSE IN ROOM TO DISCUSS DISCHARGE PLANNING AND NEEDS. PT REPORTS LIVING AT HOME INDEPENDENTLY WITH SPOUSE. PT HAS NO MEDICAL EQUIPMENT AND NO OUTSIDE SERVICES ASSISTING IN THE HOME. CM DISCUSSED AVAILABILITY OF HOME HEALTH, REHAB SERVICES AND MEDICAL EQUIPMENT. PT DENIES DISCHARGE NEEDS, REPORTS THE DOCTOR IS WORKING ON A HOSPITAL TRANSFER FOR HEART SURGERY. PT REPORTS HER SPOUSE WILL PICK HER UP FOR DISCHARGE HOME. CM TO FOLLOW AND ASSIST NEEDED. Gastroenterology Technician: Parkash Clarke
[2016-07-16 16:49] VITALS: BP 121/68
--- NOTE | 2016-07-16 19:03 | NUR ---
SITTING UP IN BED, AAOX3, SKIN WARM AND DRY, RESP UNLABORED, IV PATENT TO LEFT WRIST, FAMILY AT BEDSIDE, NO DISTRESS NOTED
[2016-07-16 21:47] VITALS: BP 110/71
[2016-07-17 01:44] VITALS: BP 118/61
--- NOTE | 2016-07-17 01:45 | NUR ---
PT LAYING IN BED NO DISTRESS OBSERVED CALL LIGHT INR EACH SRX2 WILL MONITOR
--- NOTE | 2016-07-17 05:30 | NUR ---
RESTING QUIETLY IN BED, NO DISTRESS NOTED
[2016-07-17 06:06] LABS: BASOPHILS 0.5 % (0.0-2.0); EOSINOPHILS 3.3 % (0-7); HEMATOCRIT 40.9 % (36.0-48.0); HEMOGLOBIN 13.7 g/dL (12-16); IMMATURE GRANULOCYTES 0.2 % (0-5); LYMPHOCYTES 26.3 % (15-50); MCH 28.3 pg (26.0-34.0); MCHC 33.5 g/dL (31.0-37.0); MCV 84.5 fL (80.0-100.0); MEAN PLATELET VOLUME 10.7 fL (7.4-10.4); MONOCYTES 19.6 % (2-11); NEUTROPHILS 50.1 % (40-80); PLATELET COUNT 268 10x3/uL (130-400); RBC 4.84 10x6/uL (4.00-5.40); RDW 13.7 % (11.5-14.5)
[2016-07-17 06:10] VITALS: BP 119/70
[2016-07-17 06:37] LABS: ALBUMIN 3.3 g/dL (3.4-5.0); ALKALINE PHOSPHATASE 84 U/L (46-116); ALT (SGPT) 105 U/L (10-68); BILIRUBIN - TOTAL 0.34 mg/dL (0.2-1.3); CALCIUM 8.3 mg/dL (8.5-10.1); CARBON DIOXIDE 31.7 mmol/L (21.0-32.0); CHLORIDE - SERUM 97 mmol/L (98-107); CREATININE - SERUM 0.6 mg/dL (0.6-1.3); GLUCOSE 87 mg/dL (74-106); PHOSPHOROUS 3.8 mg/dL (2.5-4.9); POTASSIUM - SERUM 3.3 mmol/L (3.5-5.1); PROTEIN - SERUM 6.2 g/dL (6.4-8.2); SODIUM 136 mmol/L (136-145); eGFR NON AFRICAN AMERICAN > 90 mL/min (90-120)
[2016-07-17 06:44] LABS: CALC OSMOLALITY 269 mosm/kg (275-300); UREA NITROGEN 11 mg/dL (7-18)
[2016-07-17 08:00] VITALS: BP 133/73
--- NOTE | 2016-07-17 08:36 | NUR ---
PREOP FOR PROCESS MECHANIC. UP TO BR VOIDED QS.
[2016-07-17 12:00] VITALS: BP 114/54
--- NOTE | 2016-07-17 12:47 | NUR ---
PATIENT RETURN FROM DATA COLLECTOR@ 1030. TR BAND ON R WRIST. SITE CLEAN, DRY AND NO EDEMA. SLEEPING. FAMILY AT BEDSIDE. VS STABLE. AT 1130, TR BAND RELEASED SLOWLY. PT TOLERATED WELL. 1230 TR BAND RELEASED COMPLETELY. PATIENT SITTING UP IN BED EATING WITHOUT ANY ISSUES. SITE REMAINS NO BLEEDING AND NO EDEMA.
--- NOTE | 2016-07-17 13:45 | NUR ---
Nutrition follow-up: Diet: Low sodium PO intake ~75% of meals labs reviewed +BM Wt: 101# PO intake is good at this time. Will continue to provide food choices with selective menus and honor food preferences within diet restrictions. RDN following.
--- NOTE | 2016-07-17 14:23 | NUR ---
TR BAND REMOVED. NO EDEMA OR BLEEDING NOTED.
[2016-07-17 16:00] VITALS: BP 117/65
--- NOTE | 2016-07-17 19:04 | NUR ---
ADMINISTERED PTS IV LASIX R/T DOSE BEING SKIPPED EARLIER TODAY AND PT NEEDS IT TO KEEP FLUID OFF. NO FURTHER NEEDS. WILL CTM.
--- NOTE | 2016-07-17 19:49 | NUR ---
PT ROUNDS COMPLETED NO DISTRESS OBSERVED PT SITTING IN CHAIR AT BEDSIDE ROLLING HAIR IN CURLERS. DAUGHTER AT BED SIDE PT REQUESTING HS MEDS SOON POSSIBLE WILL REVIEW VITAL SIGNS AND MEDICATIONS AND ADMIN ORDERED RESPERATIONS EVEN AND UNLABORED ON ROOM AIR WILL MONITOR
[2016-07-17 20:11] VITALS: BP 129/65
--- NOTE | 2016-07-17 20:45 | NUR ---
SITTING UP IN BED, AAOX3, SKIN WARM AND DRY, RESP UNLABORED, IV PATENT TO LEFT WRIST, FAMILY AT BEDSIDE, MOOD PLEASANT, NO DISTRESS NOTED
[2016-07-18 02:18] VITALS: BP 113/53
--- NOTE | 2016-07-18 06:01 | NUR ---
RESTING QUIETLY IN BED, NO DISTRESS NOTED
[2016-07-18 06:42] VITALS: BP 121/65
[2016-07-18 07:22] LABS: BASOPHILS 0.8 % (0.0-2.0); EOSINOPHILS 3.8 % (0-7); HEMATOCRIT 42.5 % (36.0-48.0); IMMATURE GRANULOCYTES 0.2 % (0-5); LYMPHOCYTES 24.6 % (15-50); MCH 28.1 pg (26.0-34.0); MCHC 32.9 g/dL (31.0-37.0); MCV 85.3 fL (80.0-100.0); MEAN PLATELET VOLUME 10.1 fL (7.4-10.4); MONOCYTES 18.9 % (2-11); NEUTROPHILS 51.7 % (40-80); PLATELET COUNT 271 10x3/uL (130-400); RBC 4.98 10x6/uL (4.00-5.40); RDW 13.8 % (11.5-14.5); WBC 6.3 10x3/uL (4.8-10.8)
[2016-07-18 07:31] LABS: ALBUMIN 3.5 g/dL (3.4-5.0); ANION GAP 10.9 mmol/L (8-16); BILIRUBIN - TOTAL 0.42 mg/dL (0.2-1.3); CALCIUM 8.8 mg/dL (8.5-10.1); PROTEIN - SERUM 6.5 g/dL (6.4-8.2)
[2016-07-18 07:35] LABS: CREATININE - SERUM 0.8 mg/dL (0.6-1.3); POTASSIUM - SERUM 3.9 mmol/L (3.5-5.1)
[2016-07-18 08:00] VITALS: BP 114/64
[2016-07-18 11:50] VITALS: BP 112/62
--- NOTE | 2016-07-18 14:39 | NUR ---
DISCHARGE TEACHING COMPLETED, PAPERS SIGNED AND PT VERBALIZED UNDERSTANDING. DENIES ANY QUESTIONS OR CONCERNS. JUST AWAITING ON TRANSPORTATION.
--- NOTE | 2016-07-20 11:12 | OP ---
PATIENT NAME: DAMI GORE MEDICAL RECORD: [id number] :44 LOCATION:D.M2 D.2125 ADMISSION DATE:07/13/16 SURGEON: TAYLOR WALDEN MD DATE OF OPERATION: 07/17/2016 PROCEDURES: 1. Left heart catheterization. 2. Selective coronary angiography. 3. Left ventriculogram. INDICATION: Mitral valve surgery. PROCEDURE IN DETAIL: After informed consent was obtained and after a detailed explanation of the risks, benefits as well as alternative therapies, the patient elected to proceed with angiogram and heart catheterization. The right radial area was prepped and draped in normal sterile fashion. The right radial artery was cannulated via modified Seldinger technique with placement of 5-Kiswahili sheath. All catheters exchanged through this sheath. FINDINGS: The left ventriculogram was performed in standard 30-degree BASS view reveals ejection fraction 60%, severe mitral regurgitation. SELECTIVE CORONARY ANGIOGRAPHY: Left main, left anterior descending, left circumflex, right coronary are all smooth-walled vessels with no angiographic evidence of coronary artery disease. OVERALL IMPRESSION: 1. No angiographic evidence of coronary artery disease. 2. Normal left heart pressures. 3. Normal left ventricular systolic function. Severe mitral regurgitation and evaluate for mitral valve repair. TRANSINT:[id number] Voice Confirmation ID: [id number] DOCUMENT ID: [id number] TAYLOR WALDEN MD at 1112 CC: [id number] DICTATION DATE: 07/17/16 0927 GROUND CREW LINES PERSON: 07/17/16 0938 DIS IN 07/18/[address] [address]
--- NOTE | 2016-07-27 12:39 | CN ---
PATIENT NAME:DAMI GORE MEDICAL RECORD: [id number] : 44 LOCATION:D. D.2125 ADMIT DATE: 07/13/16 ACCOUNT: [id number] CONSULTING PHYSICIAN: ERIN FLORES MD REFERRING PHYSICIAN: HERRERA GLASER MD DATE OF CONSULTATION: 07/13/2016 CONSULT REQUESTING PHYSICIAN: Magda Gore MD REASON FOR CONSULTATION: Pneumonia, acute hypoxic respiratory failure and pulmonary edema. HISTORY OF PRESENT ILLNESS: Ms. Gore is a 76-year-old very pleasant lady. She was apparently of good health for the last 3-4 days, she had nausea, vomiting, and diarrhea. She was also having shortness of breath. She was treated with some IV fluid yesterday. Last night, the patient had severe orthopnea and PND. The patient could not lie down and she came in this morning and she was admitted directly from Dr. Gore's office. She denies any fever and chill. There is no night sweats. She has cough without much sputum production. She denies any chest pain. She does have palpitation. REVIEW OF SYSTEMS: CONSTITUTIONAL: No fever or chills. She has just feeling weak and lethargic. HEENT: No sinus congestion. RESPIRATORY: As in history of present illness. CARDIOVASCULAR: As in history of present illness. GASTROINTESTINAL: As in history of present illness. GENITOURINARY: Negative. Other review of systems is negative. PAST MEDICAL HISTORY: 1. History of thyroid cancer. 2. Breast cancer. PAST SURGICAL HISTORY: 1. She had a right breast surgery. 2. She had thyroidectomy 20 years ago. ALLERGIES: There are no known drug allergies. PRESENT MEDICATIONS: She is on Zithromax IV, Rocephin IV and Lasix IV. Her other medications are reviewed. PERSONAL AND SOCIAL HISTORY: The patient has never smoked. She is a nondrinker. FAMILY HISTORY: None known. PHYSICAL EXAMINATION: GENERAL: Now, the patient is lying comfortably in bed. She is not in acute distress. VITAL SIGNS: The blood pressure is 113/85, pulse is 113 and irregular, respiration is 18, temperature is 97.9 and SpO2 is 96% on 2 liters nasal cannula. HEENT: Conjunctivae are pink. Sclerae are nonicteric. CONSULT REPORT [id number] GORE,DAMI J NECK: Supple. There is elevated JVD. CHEST: There is decreased breath sound at the bases. There are crackles. HEART: Rate and rhythm irregular. Normal sound. No murmur. ABDOMEN: Soft. Bowel sounds present. No hepatosplenomegaly. RECTAL: Deferred. EXTREMITIES: No cyanosis, no clubbing and no pedal edema. SKIN: Warm and normal turgor. CENTRAL NERVOUS SYSTEM: The patient is awake and alert. There are no obvious cranial nerve abnormalities. The gait was not tested. IMAGING: Chest radiograph, there are bilateral pleural effusions and increased interstitial markings. CTA of the official report is pending, but there are bilateral pleural effusions. There is atelectasis in the left lower lobe more than the right. IMPRESSION: 1. Acute hypoxic respiratory failure, which is secondary: A. Pneumonia, most likely community-acquired pneumonia. B. Bilateral pleural effusion. C. Pulmonary edema. D. Atelectasis. 2. Congestive heart failure with diastolic dysfunction with ejection fraction of 60%. 3. Acute atrial fibrillation. 4. Viral gastroenteritis. 5. Leukocytosis secondary to pneumonia. RECOMMENDATION: 1. I will continue Zithromax. Discontinue the Rocephin. I will start him on Zosyn to cover for anaerobe and aspiration pneumonia. 2. Continue Lasix. Follow up chest x-ray on a daily basis. If the pleural effusions are not getting any better, we will proceed with the thoracentesis. Continue Lovenox. Heart rate control per Dr. Ruzi. Discuss with Dr. Ruiz. 4. Follow up labs and chest radiograph in the morning. Dr. Gore, once again thanks for involving me in the care of Ms. Gore. TRANSINT:[id number] Voice Confirmation ID: [id number] DOCUMENT ID: [id number] ERIN FLORES MD at 1239 CC: MAGDA GORE M.D. [id number] DICTATION DATE: 07/13/16 1608 JAVA DEVELOPER ARCHITECT: 07/14/16 0009 DIS IN 07/18/16 [id number] [place] [address]
== END 2016-07-18 15:23 | disposition short-term general hospital (02) | DRG 286 ==
LOC: D.ER 10:00 → D.ICU 12:55 → D.M2 12:55
PROVIDERS: Emergency Medicine; Family Medicine; Internal Medicine Interventional Cardiology; ADMIT Family Medicine
PROC: B2151ZZ Fluoroscopy of Left Heart using Low Osmolar Contrast (ICD-10-PCS; 2016-07-17)
PROC: 4A023N7 Measurement of Cardiac Sampling and Pressure, Left Heart, Percutaneous Approach (ICD-10-PCS; 2016-07-17)
PROC: B2111ZZ Fluoroscopy of Multiple Coronary Arteries using Low Osmolar Contrast (ICD-10-PCS; principal; 2016-07-17 10:45)
DX: I08.1 Rheumatic disorders of both mitral and tricuspid valves (principal); J96.01 Acute respiratory failure with hypoxia; I50.31 Acute diastolic (congestive) heart failure; J98.11 Atelectasis; E87.1 Hypo-osmolality and hyponatremia; A08.4 Viral intestinal infection, unspecified; E87.6 Hypokalemia; Z85.3 Personal history of malignant neoplasm of breast; Z85.850 Personal history of malignant neoplasm of thyroid; I48.91 Unspecified atrial fibrillation